=== PATIENT | female | born 1960 | race Two or more races ===

== ENCOUNTER 2017-12-16 20:54 | Emergency (ER) | payer MEDICAID ==
[~2017-12-16] VITALS: Ht 160 cm; Wt 85.7 kg
[2017-12-16 21:30] VITALS: BP 124/64
[2017-12-16] MEDS ORDERED: HYDROcodone-ACET 5/325MG TAB PO ONE (23:00)
== END 2017-12-16 21:49 | disposition home or self-care (01) ==
LOC: ER 20:54
DX: M25.572 Pain in left ankle and joints of left foot (principal); S93.402A Sprain of unspecified ligament of left ankle, initial encounter; V80.010A Animal-rider injured by fall from or being thrown from horse in noncollision accident, initial encounter; Y93.52 Activity, horseback riding; Y92.89 Other specified places as the place of occurrence of the external cause; Y99.8 Other external cause status
CPT/HCPCS: 29515; 73610; 73630